=== PATIENT | male | born 1960 | race Caucasian/White ===

== ENCOUNTER 2017-09-12 13:46 | Emergency (ER) | payer MEDICAID ==
[~2017-09-12] VITALS: Ht 175.3 cm; Wt 95.3 kg
--- NOTE | 2017-09-12 14:10 | NUR ---
ADMIT A MALE PT IN RM 1A FROM HOME. AMBULATORY,ALERT AND ORIENTEDX3, ACCOMPANIED BY WITH A C/O ABSCESS ON HIS LEFT UPPER BACK. CONDITION IS STABLE.
--- NOTE | 2017-09-12 14:30 | NUR ---
I&D PERFORMED BY DR WEST AT THE BEDSIDE. SALINE FLUSH AND 2X2 GAUZE DRESSING APPLIED.
[2017-09-12] MEDS ORDERED: LIDOCAINE 1%-EPI 1:100,000 20 ML VIAL ONE (14:45)
[2017-09-12] MEDS ORDERED: LIDOCAINE HCL 1% 20 ML VIAL IJ ONE (14:45)
--- NOTE | 2017-09-12 15:01 | NUR ---
DISCHARGE INSTRUCTION GIVEN TO PT AND WITH GOOD UNDERSTANDING. CONDITION STABLE. DC HOME AMBULATORY WITH .
[2017-09-12 15:38] VITALS: BP 130/60
== END 2017-09-12 15:01 | disposition home or self-care (01) ==
LOC: ER 13:52
DX: L02.414 Cutaneous abscess of left upper limb (principal); I10 Essential (primary) hypertension; E78.00 Pure hypercholesterolemia, unspecified
CPT/HCPCS: A4663; J3490